=== PATIENT | female | born 2000 | race Two or more races ===

== ENCOUNTER 2023-11-25 14:43 | Emergency (ER) | payer BC ==
[~2023-11-25] VITALS: Ht 162.6 cm; Wt 68.0 kg
[2023-11-25 15:09] VITALS: BP 134/76; TEMP 98.3; O2SAT 100
== END 2023-11-25 17:07 | disposition left against medical advice (07) ==
LOC: ER 15:38
DX: M54.9 Dorsalgia, unspecified (principal); Z53.21 Procedure and treatment not carried out due to patient leaving prior to being seen by health care provider